=== PATIENT | male | born 1955 | race Caucasian/White ===

== ENCOUNTER 2023-09-13 10:30 | Day surgery (SDC) | payer OTHER ==
[2023-09-11 12:29] LABS: Potassium 3.9 mEq/L (3.5-5.1)
[2023-09-11 12:36] LABS: Absolute Lymphocytes (CBC) 1.8 K/uL (0.7-4.9); Lymphocytes % 21.1 % (15.3-44.8); MCV 94.4 fL (80-100); MPV 6.6 fL (7.6-11.3); Platelets 213 thou/uL (152-406); RBC Red Blood Cell Count 4.23 M/uL (4.33-5.43)
[2023-09-11 12:39] LABS: Protime INR 1.16
--- NOTE | 2023-09-12 17:13 | EKG ---
Test Date: 2023-09-11 Test Time: 13:06:01 Tool Salvage Worker: PABLO MEASUREMENT RESULTS: Intervals: Rate: 72 [place]: 168 QRSD: 108 QT: 390 QTc: 427 [place]: P: 65 [place]: 168 QRS: 2 T: 46 INTERPRETIVE STATEMENTS: Sinus rhythm with premature atrial complexes with aberrant conduction Nonspecific ST abnormality Abnormal ECG Compared to ECG 07/03/2023 09:56:14 Atrial premature complex(es) now present Aberrant conduction of supraventricular beat(s) now present ST (T wave) deviation now present Ventricular premature complex(es) no longer present Left-axis deviation no longer present Electronically Signed On 09-12-23 17:10:36 TABLE TENDER SLUDGE by Denver Menard
[2023-09-13] MEDS ORDERED: NA CHLORIDE 0.9% 500 ML ONE (11:01)
[2023-09-13] MEDS ORDERED: VERAPAMIL HCL 10 MG/4 ML VIAL IV ONE (11:58)
[2023-09-13] MEDS ORDERED: HEPA 1000U/500MLS 2,000 UNIT/1,000 ML BAG IV ONE (11:58)
[2023-09-13] MEDS ORDERED: LIDOCAINE 1% 20 ML MDV ONE (11:58)
[2023-09-13] MEDS ORDERED: MIDAZOLAM HCL 2 MG/2 ML INJ ONE (11:59)
[2023-09-13] MEDS ORDERED: FENTANYL CITR 100 MCG/2 ML ONE (11:59)
[2023-09-13] MEDS ORDERED: HEPARIN 10,000 UNIT/10 ML VIAL IV ONE (12:00)
[2023-09-13] MEDS ORDERED: HEPARIN 5000 UNIT/ML 1 ML VIAL ONE (12:00)
[2023-09-13] MEDS ORDERED: TICAGRELOR 90 MG TABLET PO ONE (12:00)
[2023-09-13] MEDS ORDERED: ASPIRIN 325 MG TAB ONE (12:01)
[2023-09-13] MEDS ORDERED: CLOPIDOGREL 75 MG TABLET ONE (12:01)
--- NOTE | 2023-09-13 14:04 | OP ---
Date of Procedure: 09/13/2023 Surgeon: KOFI PULLIAM Procedures Performed: 1.Selective coronary angiogram. 2.Left heart catheterization. Indication: Chest pain with abnormal stress test. Access: Right radial artery 6-Serbian closed with TR band. Anesthesia: Total sedation time was 30 minutes. Complications: None. Bleeding: Less than 20 mL. Description Of Procedure: After risks, benefits, alternatives were explained, patient agreed to proc edure and signed informed consent. The patient was brought into cardiac catheterization laboratory, prepped and draped in the usual sterile fashion. Then I accessed right radial artery using pediatric micropuncture kit, placed a 6-Serbian Slender sheath and took 5-Serbian [place] 4.0 catheter into the ao rtic root, engaged the left main and the right coronary artery, took standard views and the catheter was pushed over the wire into the LV, measured the LVEDP. Pullback did not record any gradient. The n I removed the catheter and the sheath and placed TR band with good hemostasis. Findings: 1.Left main; large and normal. 2.LAD, very large vessel, proximal 30%, mid 20%, normal diagonal branches. Rest of the LAD is large with luminal irregularities and gives collaterals to the left circumflex. 3.Left circumflex; it is a large and dominant artery with 100% occlusion in the mid segment. It is a ROOFING SUPERINTENDENT. It has very large collaterals filling from the septals in the LAD and supplying to all the in ferior wall. 4.RCA; small, nondominant with ROOFING SUPERINTENDENT proximally and collaterals that fills the vessel dista lly. 5.LVEDP normal at 5 mmHg. Conclusion: 1.Severe left circumflex and RCA stenosis. They are ROOFING SUPERINTENDENT with collaterals for both of them. 2.Mild coronary artery disease elsewhere. 3.Normal LVEDP. Recommendation: Medical management with nitrates. If he continues to have chest pain, then we will plan to attempt a ROOFING SUPERINTENDENT intervention on the left circumflex. SR/MODL Voice ID: [id number] Report ID: [id number]
[2023-09-13 14:34] VITALS: BP 158/79; O2SAT 98
== END 2023-09-13 14:50 | disposition home or self-care (01) ==
LOC: CCL 10:30
PROVIDERS: ATTEND Internal Medicine
DX: I25.10 Atherosclerotic heart disease of native coronary artery without angina pectoris (principal); I25.82 Chronic total occlusion of coronary artery; I73.9 Peripheral vascular disease, unspecified; I65.29 Occlusion and stenosis of unspecified carotid artery; I10 Essential (primary) hypertension; E78.5 Hyperlipidemia, unspecified; Z79.899 Other long term (current) drug therapy
CPT/HCPCS: 93005; 85025; 80048; 36415; 83721; 85610; 85730; 93458; 76937; C1893; Q9966; J1644; J2001; J2250; J3010; J7040; 99152; 99153

== ENCOUNTER 2023-10-06 08:26 | Day surgery (SDC) | payer OTHER ==
[2023-10-04 10:22] LABS: Absolute Lymphocytes (CBC) 1.7 K/uL (0.7-4.9); Hematocrit 40.2 % (39.6-49.0); Lymphocytes % 21.4 % (15.3-44.8); MCV 93.5 fL (80-100); MPV 6.5 fL (7.6-11.3); Platelets 212 thou/uL (152-406)
[2023-10-04 10:23] LABS: Protime INR 1.1
[2023-10-04 10:42] LABS: Potassium 4.5 mEq/L (3.5-5.1)
--- NOTE | 2023-10-04 10:45 | RAD REPORT ---
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 Lungs: No evidence of edema or pneumonia. Several calcified right lung nodules. Pleural: No significant pleural effusions or pneumothorax. Cardiac: The heart size is within normal limits. Mediastinum: Within normal limits. Bones: No acute fractures. Other: None IMPRESSION: No acute cardiopulmonary disease.
--- NOTE | 2023-10-05 13:25 | EKG ---
Test Date: 2023-10-04 Test Time: 11:05:46 Operations Planner: PABLO MEASUREMENT RESULTS: Intervals: Rate: 67 CA: 170 QRSD: 112 QT: 382 QTc: 403 [place]: P: 64 CA: 170 QRS: 6 T: 70 INTERPRETIVE STATEMENTS: Normal sinus rhythm Normal ECG Compared to ECG 09/11/2023 13:06:01 Atrial premature complex(es) no longer present Aberrant conduction of supraventricular beat(s) no longer present ST (T wave) deviation no longer present Electronically Signed On 10-05-23 13:22:19 NOTCHING MACHINE OPERATOR by Denver Menard
[2023-10-06] MEDS ORDERED: HEPA 1000U/500MLS 2,000 UNIT/1,000 ML BAG IV ONE (08:31)
[2023-10-06] MEDS ORDERED: NA CHLORIDE 0.9% 500 ML ONE (08:48)
[2023-10-06] MEDS ORDERED: MIDAZOLAM HCL 2 MG/2 ML INJ ONE (09:20)
[2023-10-06] MEDS ORDERED: FENTANYL CITR 100 MCG/2 ML ONE (09:20)
[2023-10-06] MEDS ORDERED: LIDOCAINE 1% 20 ML MDV ONE (10:06)
[2023-10-06 13:25] VITALS: BP 153/82; O2SAT 99
--- NOTE | 2023-10-06 14:57 | OP ---
Date of Procedure: 10/06/2023 Surgeon: KOFI PULLIAM Procedures Performed: 1.Bilateral selective carotid angiogram. 2.Peripheral angiogram with runoff. Indications: 1.Carotid stenosis. 2.PAD with symptoms. Access: Right femoral artery 6-Kyrgyz closed with StarClose. Complications: None. Bleeding: Less than 20 mL. Anesthesia: Total sedation time was 30 minutes. Used fentanyl and Versed. Description Of Procedure: After risks, benefits, and alternatives were explained, the patient agreed to procedure and signed informed consent. The patient was brought into cardiac catheterization [facility], prepped and draped in the usual sterile fashion. Then, I accessed right femoral artery using micropuncture kit, ultrasound guidance, and fluoroscopy, placed a 6-Kyrgyz [place] sheath, took 6-F rench 3DRC catheter into aortic root, and engaged right common carotid, took standard views, and the left common carotid, and took standard views, and then exchanged for a 4-Kyrgyz Omniflush catheter pl aced in distal aorta, performed distal aortogram with runoff and then removed the catheter and sheath and StarClose was used for closure with good hemostasis. Findings: 1.Carotid angiogram: a.Right common carotid is normal and the right internal carotid has significant stenosis ranging bet ween 70% to 80%, right external carotid is patent. b.Left common carotid is normal. Left external carotid is normal. Left internal carotid has proxim al 30% to 40% stenosis. 2.Peripheral angiogram: a.This aorta is widely patent. b.Right lower extremity. Right common iliac is normal. Right external iliac has about 30% stenosis . Luminal irregularities to the right common femoral artery, and widely patent right profunda with l uminal irregularities. The right SFA is totally occluded ostially and then I did not see reconstitut ion, but there are collaterals from the profunda. I could not see the vessels below the knee very we ll. 3.Left lower extremity: The left common iliac has 40% stenosis proximally. Left external iliac and left common femoral are widely patent. Left profunda is patent. Left SFA is patent with diffuse 20 % to 30% stenosis. Three-vessel runoff [id number] with diffuse moderate disease ranging between 50% to 60%. Conclusion: 1.Severe right internal carotid artery stenosis. 2.Severe right lower extremity peripheral vascular disease. Plan: 1.Right internal carotid artery endarterectomy. 2.We will plan for staged intervention in the right lower extremity, try to open the SFA. /ZAC Voice ID: [id number] Report ID: [id number]
== END 2023-10-06 13:05 | disposition home or self-care (01) ==
LOC: CCL 08:26
PROVIDERS: ATTEND Internal Medicine
DX: I70.223 Atherosclerosis of native arteries of extremities with rest pain, bilateral legs (principal); I70.92 Chronic total occlusion of artery of the extremities; I65.23 Occlusion and stenosis of bilateral carotid arteries; I25.10 Atherosclerotic heart disease of native coronary artery without angina pectoris; I10 Essential (primary) hypertension; E78.5 Hyperlipidemia, unspecified; Z79.899 Other long term (current) drug therapy
CPT/HCPCS: 93005; 85025; 80048; 36415; 83721; 85610; 85730; 71046; 75630; 36222; 76937; C1893; J2001; J2250; J3010; J7040; 99152; 99153

== ENCOUNTER 2024-10-25 12:09 | Inpatient (IN) | payer OTHER ==
--- OUTSIDE RECORDS SUMMARY | 2024-10-25 12:12 | XMS REPORT | Clinical Summary ---
Author Name Unknown Organization [facility] Address [address] [place] [address] Care Team Providers Care Health Inspector Food Name Role Phone Jojo Corral RN Unavailable [phone] Abbie Cruz PALLETISER OPERATOR Unavailable [phone] Tramaine Mahmood MD Unavailable [phone] Encounters Date Type Department Care Team Description 05/20/2024 Telephone [facility] [address]th [place] [address] Jojo Corral, RN Nurse Navigation 05/08/2024 Documentation [facility] [address], [address]th [place] [address] Jojo Corral, RN Nurse Navigation 04/29/2024 Telephone [facility] [place] [facility] [address], [address]th [place] [address] Jojo Corral, RN Nurse Navigation after 10/26/2023 Social History Tobacco Use Types Packs/Day Years Used Date Smoking Tobacco: Never Assessed Sex and Gender Information Value Date Recorded Sex Assigned at Not on file Legal Sex Male 10:35 AM CDT Gender Identity Not on file Sexual Orientation Not on file Plan of Treatment Health Maintenance Due Date Last Done Comments Pneumococcal Vaccine: 50+ Years (1 of 1 - PCV) 006 COVID-19 Vaccine (2023- season) 2024 Influenza Vaccine (#1) 2024 Insurance MEDICARE ADVANTAGE MEDICARE ADVANTAGE Care Teams Health Inspector Food Relationship Specialty Start Date End Date Abbie Cruz FNP [address] [place] [address] PCP - External Primary Care Provider Family Practice 04/29/24 Tramaine Mahmood MD [address] [place] [id number] [email or web address] PCP - External Follow Up A Pulmonary Medicine 04/29/24 Jojo Corral, RN [address] [place] [address] [email or web address] Intake Nurse Navigator Nursing 04/29/24 05/19/24
--- NOTE | 2024-10-25 15:02 | RAD REPORT ---
EXAM: Chest Single View HISTORY: COUGH COMPARISON: 05/16/2024 FINDINGS: LUNGS/PLEURA: The lungs are clear. No pleural effusions or pneumothorax. No pulmonary edema. The prev iously biopsied right lung nodule has decreased in size. MEDIASTINUM: The mediastinal silhouette is within normal limits. CARDIAC: The cardiac silhouette is within normal limits. UPPER ABDOMEN: No significant abnormality. BONES: No acute abnormality. LINES/TUBES/OTHER: Left IJ approach Port-A-Cath with tip overlying the proximal SVC. IMPRESSION: No evidence of acute cardiopulmonary disease.
[2024-10-25 15:55] LABS: Absolute Lymphocytes (CBC) 0.1 K/uL (0.7-4.9); Absolute Monocytes 0.2 K/uL (0.1-1.3); Absolute Neutrophil 1.5 K/uL (1.8-8.0); Basophils % 0.8 % (0-1.3); Eosinophils % 0.1 % (0-4.4); Hematocrit 36.5 % (39.6-49.0); Hemoglobin 12.4 g/dL (13.6-17.9); Lymphocytes % 6.6 % (15.3-44.8); MCH 30.7 pg (27.0-35.0); MCHC 33.9 g/dL (32.0-36.0); MCV 90.5 fL (80-100); MPV 6.9 fL (7.6-11.3); Monocytes % 10.2 % (3.3-12.3); Neutrophils % 82.3 % (41.7-73.7); Nucleated Red Blood Cells % 0.3 % (0-0); Platelets 139 thou/uL (152-406); RBC Red Blood Cell Count 4.03 M/uL (4.33-5.43); Red Cell Distribution Width 24.4 % (12.1-15.2)
[2024-10-25 15:56] LABS: Platelet Estimate DECR; Platelets, Giant PRESENT; White Blood Cell Scan OK (OK)
[2024-10-25] MEDS ORDERED: NA CHLORIDE 0.9% 1,000 ML ONE ×3 (15:56→21:29)
[2024-10-25 15:57] LABS: Anisocytosis 3+; Blood Morphology Comment NOTED (NOT SEEN); PT Prothrombin Time 20.2 SECONDS (10.0-13.0); Protime INR 1.82
[2024-10-25 16:12] LABS: AST/SGOT 13 U/L (15-37); Albumin/Globulin Ratio 0.6 (1.1-1.8); Alkaline Phosphatase 147 U/L (45-117); Anion Gap 12.1 mEq/L (5.0-15.0); BUN Blood Urea Nitrogen 17 mg/dL (7-18); Bicarbonate 24 mEq/L (21-32); Bilirubin Direct 0.3 mg/dL (0-0.2); Bilirubin Indirect, Calculated 0.3 mg/dL (0.2-0.8); Bilirubin Total 0.6 mg/dL (0.2-1.0); Globulin 5.2 g/dL (2.3-3.5); Glomerular Filtration Rate 98 ml/min (=/>90); Glucose Level 112 mg/dL (74-106); Lipase 15 U/L (13-75); Magnesium 1.8 mg/dL (1.6-2.4); NT PRO-BNP 379 pg/mL (<125); Potassium 4.1 mEq/L (3.5-5.1); Protein, Total 8.2 g/dL (6.4-8.2); Sodium Level 133 mEq/L (136-145); Troponin High Sensitivity 9.9 pg/mL (<58.9)
[2024-10-25 16:13] LABS: ALT/SGPT < 14 U/L (16-61)
[2024-10-25 16:18] LABS: Influenza A Ag Negative; Influenza B Ag Negative; SARS-CoV-2 Antigen Rapid Res Negative (Negative)
[2024-10-25] MEDS ORDERED: ONDANSETRON 4 MG/2 ML VIAL ONE (16:38)
[2024-10-25] MEDS ORDERED: MAGNES/ALUMIN/SIMET 30ML UCUP ONE (16:39)
[2024-10-25] MEDS ORDERED: FAMOTIDINE 20 MG/2 ML VIAL IV ONE (16:39)
[2024-10-25] MEDS ORDERED: MORPHINE 2 MG/ML SYR ONE (16:39)
[2024-10-25] MEDS ORDERED: LIDOCAINE VISCOUS 2% 10ML ORAL SOLN ONE ×2 (16:40→22:00)
--- NOTE | 2024-10-25 16:43 | EDPHYS ---
Physician Documentation [facility] Name: Ari Sutton Age: 69 yrs Sex: Male : 1955 Arrival Date: 10/25/2024 Time: 12:09 Bed 5 Private MD: ED Physician Félix Rodriguez HPI: 10/25 16:31 This 69 yrs old Male presents to ER via Wheelchair with complaints of luis Weakness, Decreased Appetite. 16:31 The patient presents to the emergency department with weakness of the entire body, luis generalized weakness. Onset: The symptoms/episode began/occurred 2 day(s) ago. Context: occurred. Historical: - Allergies: 13:19 No Known Allergies; ap3 - PMHx: 13:19 lung cancer; ap3 - Immunization history:: Client reports receiving the 2nd dose of the Covid vaccine, Flu vaccine is up to date. - Infectious Disease History:: Denies. - Social history:: Smoking status: Patient denies any tobacco usage or history of. ROS: 16:33 Constitutional: Negative for fever, chills, and weight loss, Eyes: Negative for injury, luis pain, redness, and discharge, ENT: Negative for injury, pain, and discharge, Neck: Negative for injury, pain, and swelling, Respiratory: Negative for shortness of breath, cough, wheezing, and pleuritic chest pain, Abdomen/GI: Negative for abdominal pain, nausea, vomiting, diarrhea, and constipation, Back: Negative for injury and pain, : Negative for injury, bleeding, discharge, and swelling, MS/Extremity: Negative for injury and deformity, Skin: Negative for injury, rash, and discoloration, Psych: Negative for depression, anxiety, suicide ideation, homicidal ideation, and hallucinations, Allergy/Immunology: Negative for hives, rash, and allergies, Endocrine: Negative for neck swelling, polydipsia, polyuria, polyphagia, and marked weight changes, Hematologic/Lymphatic: Negative for swollen nodes, abnormal bleeding, and unusual bruising, 16:33 ENT: Positive for difficulty swallowing, 16:33 Cardiovascular: Positive for palpitations, Exam: 16:33 Constitutional: This is a well developed, well nourished patient who is awake, alert, luis and in no acute distress. Head/Face: Normocephalic, atraumatic. Eyes: Pupils equal round and reactive to light, extra-ocular motions intact. Lids and lashes normal. Conjunctiva and sclera are non-icteric and not injected. Cornea within normal limits. Periorbital areas with no swelling, redness, or edema. Neck: Trachea midline, no thyromegaly or masses palpated, and no cervical lymphadenopathy. Supple, full range of motion without nuchal rigidity, or vertebral point tenderness. No Meningismus. Chest/axilla: Normal chest wall appearance and motion. Nontender with no deformity. No lesions are appreciated. Cardiovascular: Regular rate and rhythm with a normal S1 and S2. No gallops, murmurs, or rubs. Normal PMI, no JVD. No pulse deficits. Respiratory: Lungs have equal breath sounds bilaterally, clear to auscultation and percussion. No rales, rhonchi or wheezes noted. No increased work of breathing, no retractions or nasal flaring. Abdomen/GI: Soft, non-tender, with normal bowel sounds. No distension or tympany. No guarding or rebound. No evidence of tenderness throughout. Back: No spinal tenderness. No costovertebral tenderness. Full range of motion. Skin: Warm, dry with normal turgor. Normal color with no rashes, no lesions, and no evidence of cellulitis. MS/ Extremity: Pulses equal, no cyanosis. Neurovascular intact. Full, normal range of motion., bilateral aka Neuro: Awake and alert, GCS 15, oriented to person, place, time, and situation. Cranial nerves II-XII grossly intact. Motor strength 5/5 in all extremities. Sensory grossly intact. Cerebellar exam normal. Normal gait. Psych: Awake, alert, with orientation to person, place and time. Behavior, mood, and affect are within normal limits. 16:33 ENT: Mouth: Lips: dry, Oral mucosa: dry, Tongue: is normal, Posterior pharynx: Airway: normal, no evidence of obstruction, Tonsils: are normal in appearance, Uvula: normal, swelling, is not appreciated, erythema, that is mild, 16:42 ECG was reviewed by the Attending Physician. [facility] Vital Signs: 13:17 BP 130 / 76 LA (auto/); Pulse 100; Resp 18; Temp 97.8(TE); Pulse Ox 100% ; Weight 79.38 ap3 kg; Height 6 ft. 0 in. ; Pain 6/10; 16:06 BP 133 / 76; Pulse 98; Resp 17; Pulse Ox 98% on R/A; jl7 16:27 BP 122 / 75; Pulse 90; Resp 15; Pulse Ox 100% ; jl7 19:22 BP 123 / 71; Pulse 92; Resp 18; Temp 98.2; Pulse Ox 96% on R/A; Pain 4/10; bm8 20:56 BP 130 / 70; Pulse 78; Resp 18; Temp 98.2; Pulse Ox 97% ; Pain 4/10; bm8 13:17 Body Mass Index 23.73 (79.38 kg, 182.88 cm) ap3 13:17 Pain Scale: Adult ap3 19:22 Pain Scale: Adult bm8 20:56 Pain Scale: Adult bm8 [place] Coma Score: 19:22 Eye Response: spontaneous(4). Motor Response: obeys commands(6). Verbal Response: bm8 oriented(5). Total: 15. 20:56 Eye Response: spontaneous(4). Motor Response: obeys commands(6). Verbal Response: bm8 oriented(5). Total: 15. MDM: 12:44 Medical Screening Exam initiated luis 16:36 Data reviewed: vital signs, nurses notes, lab test result(s), EKG, radiologic studies, luis plain films. Consideration of Admission/Observation Patient was admitted/placed on observation. Escalation of care including admission/observation considered. I considered the following discharge prescriptions or medication management in the emergency department Medications were administered in the Emergency Department. See MAR. Independent interpretation of the following test(s) in the Emergency Department EKG: See my EKG interpretation above. Test considered but Not performed: CT: NO SOFT TISSUE NECK. Care significantly affected by the following chronic conditions: Cancer, SP CHEMO/ XRT. 10/25 12:47 Order name: Basic Metabolic Panel; Complete Time: 16:15 [facility] 10/25 12:47 Order name: CBC with Diff; Complete Time: 16:15 [facility] 10/25 12:47 Order name: LFT's; Complete Time: 16:15 [facility] 10/25 12:47 Order name: Magnesium; Complete Time: 16:15 [facility] 10/25 12:47 Order name: NT PRO-BNP; Complete Time: 16:15 [facility] 10/25 12:47 Order name: PT-INR; Complete Time: 16:15 [facility] 10/25 12:47 Order name: Troponin HS; Complete Time: 16:15 [facility] 10/25 12:47 Order name: Lipase; Complete Time: 16:15 [facility] 10/25 12:47 Order name: Blood Culture Adult (2) [facility] 10/25 12:47 Order name: Urinalysis W/Microscopic [facility] 10/25 15:26 Order name: Lactate w/ 2H reflex if indic.; Complete Time: 16:15 jl7 10/25 16:00 Order name: CBC Smear Scan [facility] 10/25 16:00 Order name: COVID-19 Ag + Flu A+B Ag [facility] 10/25 17:25 Order name: Urinalysis w/ reflexes [facility] 10/25 17:25 Order name: CBC with Automated Diff [facility] 10/25 17:25 Order name: CBC with Automated Diff [facility] 10/25 17:25 Order name: Comprehensive Metabolic Panel [facility] 10/25 17:25 Order name: Comprehensive Metabolic Panel [facility] 10/25 12:47 Order name: XRAY Chest (1 view); Complete Time: 16:15 [facility] 10/25 12:47 Order name: EKG; Complete Time: 12:47 [facility] 10/25 17:25 Order name: CONS Physician Consult [facility] 10/25 12:47 Order name: Cardiac monitoring; Complete Time: 15:33 [facility] 10/25 12:47 Order name: EKG - Nurse/Tech; Complete Time: 16:46 [facility] 10/25 12:47 Order name: IV Saline Lock; Complete Time: 15:47 [facility] 10/25 12:47 Order name: Labs collected and sent; Complete Time: 15:47 [facility] 10/25 12:47 Order name: O2 Per Protocol; Complete Time: 15:33 [facility] 10/25 12:47 Order name: O2 Sat Monitoring; Complete Time: 15:33 [facility] 10/25 16:30 Order name: PO challenge; Complete Time: 17:52 [facility] EC:42 Rate is 105 beats/min. Rhythm is regular. QRS Amite is Normal. NE interval is normal. luis QRS interval is normal. QT interval is normal. No Q waves. T waves are Normal. No ST changes noted. Clinical impression: Sinus tachycardia. Interpreted by me. Reviewed by me. Administered Medications: 16:03 Drug: NS 0.9% IV 500 ml 500 ml IV at 1 bolus once; to be given as a bolus over 30 jl7 minutes Volume: 500 ml; Route: IV; Rate: 1 bolus; Site: Port-a-cath; 16:29 Follow up: Response: No adverse reaction; IV Status: Completed infusion; IV Intake: jl7 500ml 16:33 Drug: NS 0.9% IV 500 ml 500 ml IV at 125 ml/hr once Volume: 500 ml; Route: IV; Rate: ko1 125 ml/hr; Site: Port-a-cath; 20:57 Follow up: Response: No adverse reaction; IV Status: Infusion continued upon admission bm8 16:47 Drug: Ondansetron IVP 4 mg IVP once; over 2 minutes Route: IVP; Site: Port-a-cath; ko1 17:05 Follow up: Response: No adverse reaction; Nausea is decreased ko1 16:47 Drug: Famotidine IVP 20 mg IVP once; dilute with 10 mL 0.9% NaCl; give over 2 minutes ko1 Route: IVP; Site: Port-a-cath; 17:05 Follow up: Response: No adverse reaction ko1 16:48 Drug: morphine IVP or IV 2 mg IVP once over 4 mins Route: IVP; Infused Over: 4 mins; ko1 Site: Port-a-[facility]; 17:05 Follow up: Response: No adverse reaction ko1 16:50 Drug: NS 0.9% IV 1000 ml IV at 1000 ml once; to be given as a bolus over 60 minutes ko1 Route: IV; Rate: 1000 ml; Site: Port-a-cath; 17:52 Follow up: Response: No adverse reaction; IV Status: Completed infusion; IV Intake: ko1 1000ml 17:10 Drug: GI Cocktail without - (Maalox PO 30 ml, Lidocaine Mucous Membrane 2 % 15 ko1 ml) PO once Route: PO; 17:40 Follow up: Response: No adverse reaction ko1 20:57 Not Given (Patient Refused): morphineor iv 2 mg IVP once over 4 mins bm8 Disposition Summary: 10/25/24 16:42 Hospitalization Ordered Notes: Hospitalization Status: Inpatient Admission luis Provider: Leelee Clement cha Condition: Serious luis Problem: new luis Symptoms: have improved luis Bed/Room Type: Standard luis Location: Telemetry/MedSurg (Inpatient)(10/25/24 21:45) hw Room Assignment: 401(10/25/24 21:45) hw Diagnosis - Dehydration luis - Dysphagia - PAINFUL/ SECONDARY XRT luis - Neutropenia, unspecified luis Forms: - Medication Reconciliation Form luis - SBAR form luis - Leadership Thank You Letter luis Signatures: Dispatcher [employer] EDMS Félix Rodriguez MD MD cha Leal, Jahala, RN RN jl7 Halima Arriaga RN RN ap3 Ignacia Foster RN RN kb3 Juanis Rachel RN RN ko1 Jennifer Kirkpatrick Brad RN bm8 Corrections: (The following items were deleted from the chart) 12:47 12:47 BASIC METABOLIC PANEL+C.LAB.BRZ ordered. EDMS EDMS 12:47 12:47 CBC+H.LAB.BRZ ordered. EDMS EDMS 12:47 12:47 HEPATIC FUNCTION+C.LAB.BRZ ordered. EDMS EDMS 12:47 12:47 MAGNESIUM+C.LAB.BRZ ordered. EDMS EDMS 12:47 12:47 PROBNP+C.LAB.BRZ ordered. EDMS EDMS 12:47 12:47 PROTIME (+INR)+COAG.LAB.BRZ ordered. EDMS EDMS 12:47 12:47 Troponin High Sensitivity+C.LAB.BRZ ordered. EDMS EDMS 12:47 12:47 LIPASE+C.LAB.BRZ ordered. EDMS EDMS 12:47 12:47 BLOOD CULTURE*+BA.LAB.BRZ ordered. EDMS EDMS 12:47 12:47 Urinalysis W/Microscopic+U.LAB.BRZ ordered. EDMS EDMS 13:20 13:19 PMHx: lunch cancer; ap3 ap3 16:00 12:47 Influenza Screen (A \T\ B)+BA.LAB.BRZ ordered. EDMS EDMS 16:00 12:47 SARS-COV-2 Antigen Rapid+I.LAB.BRZ ordered. EDMS EDMS 20:40 16:42 Telemetry/MedSurg (Inpatient) luis kb3 20:40 16:42 luis kb3 21:45 20:40 [facility] ER HOLD kb3 hw 21:45 20:40 ERHOLD- kb3 hw
--- NOTE | 2024-10-25 16:43 | ER ---
Nurse's Notes [facility] Name: Ari Sutton Age: 69 yrs Sex: Male : 1955 Arrival Date: 10/25/2024 Time: 12:09 Bed 5 Private MD: Diagnosis: Dehydration;Dysphagia-PAINFUL/ SECONDARY XRT;Neutropenia, unspecified Presentation: 10/25 13:17 Chief complaint: Patient states: he hasn't really eaten or drank much in the last two ap3 weeks due to cancer treatment. patient states his last radiation was Monday10/22/24, and last chemo treatment was 10/21/24. patient reports that he feels weak and has been sleeping a lot recently. Coronavirus screen: At this time, the client does not indicate any symptoms associated with coronavirus-19. Ebola Screen: No symptoms or risks identified at this time. Initial Sepsis Screen: Does the patient meet any 2 criteria? No. Patient's initial sepsis screen is negative. Does the patient have a suspected source of infection? No. Patient's initial sepsis screen is negative. Risk Assessment: Do you want to hurt yourself or someone else? Patient reports no desire to harm self or others. Onset of symptoms is unknown. 13:17 Method Of Arrival: Wheelchair ap3 13:17 Acuity: [place] 3 ap3 Triage Assessment: 13:20 General: Appears uncomfortable, Behavior is calm, cooperative, appropriate for age. ap3 Pain: Complains of pain in throat Pain currently is 8 out of 10 on a pain scale. EENT: Reports pain when swallowing. Neuro: Level of Consciousness is awake, alert, obeys commands, Oriented to person, place, time, situation, Appropriate for age. Cardiovascular: Patient's skin is warm and dry. Respiratory: Airway is patent Respiratory effort is even, unlabored, Respiratory pattern is regular, symmetrical. GI: Reports decreased appetite. Historical: - Allergies: 13:19 No Known Allergies; ap3 - PMHx: 13:19 lung cancer; ap3 - Immunization history:: Client reports receiving the 2nd dose of the Covid vaccine, Flu vaccine is up to date. - Infectious Disease History:: Denies. - Social history:: Smoking status: Patient denies any tobacco usage or history of. Screenin:21 [facility] ED Fall Risk Assessment (Adult) History of falling in the last 3 months, ap3 including since admission Yes- single mechanical fall (1 pt) Confusion or Disorientation No (0 pts) Intoxicated or Sedated No (0 pts) Impaired Gait Yes (1 pt) Mobility Assist Device Used Yes (1 pt) Altered Elimination No (0 pt) Score/Fall Risk Level 3 or more points = High Risk Oriented to surroundings, Maintained a safe environment, Educated pt \T\ family on fall prevention, incl call for assistance when getting out of bed, Assessed \T\ reinforced patient's understanding of fall precautions, Hourly rounding (assess needs \T\ fall precautionary measures) done, Used ambulatory aids as needed (educated on \T\ assisted with), Apply high fall risk patient identification: yellow non skid footwear/ fall signage, Remained w/in arm's length of patient and in sight while toileting, Remained with patient while ambulating, Utilized family, sitter, or virtual horticultural nursery assistant as indicated. Abuse screen: Denies threats or abuse. Nutritional screening: No deficits noted. Tuberculosis screening: No symptoms or risk factors identified. Assessment: 16:06 General: Appears in no apparent distress. ill, Behavior is calm, cooperative, jl7 appropriate for age. Pain: Denies pain. Neuro: Reports weakness in generalized. Cardiovascular: No deficits noted. Respiratory: No deficits noted. GI: Reports anorexia. : No deficits noted. No signs and/or symptoms were reported regarding the genitourinary system. EENT: No deficits noted. No signs and/or symptoms were reported regarding the EENT system. Derm: No deficits noted. No signs and/or symptoms reported regarding the dermatologic system. Musculoskeletal: Reports weakness in generalized. 19:22 General: Appears in no apparent distress. uncomfortable, Behavior is calm, cooperative, bm8 appropriate for age. Pain: Complains of pain in throat Pain does not radiate. Pain currently is 4 out of 10 on a pain scale. at worst was 10 out of 10 on a pain scale. level that patient reports is acceptable is 4 out of 10 on a pain scale. Neuro: No deficits noted. Level of Consciousness is awake, alert, obeys commands, Oriented to person, place, time, situation, Appropriate for age. Cardiovascular: No deficits noted. Denies chest pain, Capillary refill < 3 seconds in bilateral fingers Patient's skin is warm and dry. Respiratory: Airway is patent Trachea midline Respiratory effort is even, unlabored, Respiratory pattern is regular, symmetrical, Breath sounds are clear bilaterally. GI: Reports anorexia, due to radiation treatment. : No signs and/or symptoms were reported regarding the genitourinary system. EENT: No signs and/or symptoms were reported regarding the EENT system. Derm: No signs and/or symptoms reported regarding the dermatologic system. Musculoskeletal: No signs and/or symptoms reported regarding the musculoskeletal system. 20:56 Reassessment: Patient appears in no apparent distress at this time. Patient and/or bm8 family updated on plan of care and expected duration. Pain level reassessed. Patient is alert, oriented x 3, equal unlabored respirations, skin warm/dry/pink. Vital Signs: 13:17 BP 130 / 76 LA (auto/); Pulse 100; Resp 18; Temp 97.8(TE); Pulse Ox 100% ; Weight 79.38 ap3 kg; Height 6 ft. 0 in. ; Pain 6/10; 16:06 BP 133 / 76; Pulse 98; Resp 17; Pulse Ox 98% on R/A; jl7 16:27 BP 122 / 75; Pulse 90; Resp 15; Pulse Ox 100% ; jl7 19:22 BP 123 / 71; Pulse 92; Resp 18; Temp 98.2; Pulse Ox 96% on R/A; Pain 4/10; bm8 20:56 BP 130 / 70; Pulse 78; Resp 18; Temp 98.2; Pulse Ox 97% ; Pain 4/10; bm8 13:17 Body Mass Index 23.73 (79.38 kg, 182.88 cm) ap3 13:17 Pain Scale: Adult ap3 19:22 Pain Scale: Adult bm8 20:56 Pain Scale: Adult bm8 Hardin Coma Score: 19:22 Eye Response: spontaneous(4). Motor Response: obeys commands(6). Verbal Response: bm8 oriented(5). Total: 15. 20:56 Eye Response: spontaneous(4). Motor Response: obeys commands(6). Verbal Response: bm8 oriented(5). Total: 15. ED Course: 12:11 Patient arrived in ED. mr 12:44 Félix Rodriguez MD is Attending Physician. luis 13:19 Triage completed. ap3 13:21 Arm band placed on left wrist. ap3 14:41 XRAY Chest (1 view) In Process Unspecified. EDMS 15:31 Ashley Arciniega, RN is Primary Nurse. jl7 15:44 Accessed Port-a-Cath. Blood collected. using accessed w/ # 20 Kerns needle, ,sterile ss technique, per hospital protocol. Clean \T\ dry. Dressing intact. Good blood return. Flushes easily. 15:55 Placed in gown. Bed in low position. Call light in reach. Side rails up X2. Door zm closed. Noise minimized. Warm blanket given. Pillow given. Head of bed elevated. 16:06 Provided Education on: labs, meds. Pulse ox on. NIBP on. jl7 16:06 No provider procedures requiring assistance completed. jl7 16:38 Leelee Clement MD is Hospitalizing Provider. [facility] 16:48 CBC Smear Scan Sent. ko1 20:56 Patient admitted, IV remains in place. bm8 Administered Medications: 16:03 Drug: NS 0.9% IV 500 ml 500 ml IV at 1 bolus once; to be given as a bolus over 30 jl7 minutes Volume: 500 ml; Route: IV; Rate: 1 bolus; Site: Port-a-cath; 16:29 Follow up: Response: No adverse reaction; IV Status: Completed infusion; IV Intake: jl7 500ml 16:33 Drug: NS 0.9% IV 500 ml 500 ml IV at 125 ml/hr once Volume: 500 ml; Route: IV; Rate: ko1 125 ml/hr; Site: Port-a-cath; 20:57 Follow up: Response: No adverse reaction; IV Status: Infusion continued upon admission bm8 16:47 Drug: Ondansetron IVP 4 mg IVP once; over 2 minutes Route: IVP; Site: Port-a-cath; ko1 17:05 Follow up: Response: No adverse reaction; Nausea is decreased ko1 16:47 Drug: Famotidine IVP 20 mg IVP once; dilute with 10 mL 0.9% NaCl; give over 2 minutes ko1 Route: IVP; Site: Port-a-cath; 17:05 Follow up: Response: No adverse reaction ko1 16:48 Drug: morphine IVP or IV 2 mg IVP once over 4 mins Route: IVP; Infused Over: 4 mins; ko1 Site: Port-a-cath; 17:05 Follow up: Response: No adverse reaction ko1 16:50 Drug: NS 0.9% IV 1000 ml IV at 1000 ml once; to be given as a bolus over 60 minutes ko1 Route: IV; Rate: 1000 ml; Site: Port-a-cath; 17:52 Follow up: Response: No adverse reaction; IV Status: Completed infusion; IV Intake: ko1 1000ml 17:10 Drug: GI Cocktail without - (Maalox PO 30 ml, Lidocaine Mucous Membrane 2 % 15 ko1 ml) PO once Route: PO; 17:40 Follow up: Response: No adverse reaction ko1 20:57 Not Given (Patient Refused): morphineor iv 2 mg IVP once over 4 mins bm8 Medication: 16:06 VIS not applicable for this client. jl7 Intake: 16:29 IV: 500ml; Total: 500ml. jl7 17:52 IV: 1000ml; Total: 1500ml. ko1 Outcome: 16:42 Decision to Hospitalize by Provider. [facility] 20:56 Admitted to ER Hold. Please see [facility] for further documentation. bm8 20:56 Condition: stable 20:56 Instructed on follow up and referral plans. the need for admit, Demonstrated understanding of instructions, follow-up care, 22:55 Patient left the ED. vc1 Signatures: Dispatcher [employer] Félix Vargas MD MD cha Rivera, Carly, Reg Reg Kim Cagle, RN RN Ashley Chavarria RN RN jl7 Halima Arriaga RN RN [id number] Emma Calhoun RN RN vc1 Martinez, Zaina zm Oliver, Kathy, RN RN ko1 Marcus Vila, EANREST RN bm8 Corrections: (The following items were deleted from the chart) 13:20 13:19 PMHx: lunch cancer; ap3 ap3 16:00 15:53 Influenza Screen (A \T\ B)+BA.LAB.BRZ drawn and sent. EDMS 16:00 15:53 SARS-COV-2 Antigen Rapid+I.LAB.BRZ drawn and sent. [facility]
[2024-10-25] MEDS ORDERED: ACETAMINOPHEN 500 MG TAB PO PRN (17:20)
--- NOTE | 2024-10-25 17:29 | P.HP ---
Certification for Inpatient Patient will require the following post-hospital care: Home Health Services Practitioner: I am a practitioner with admitting privileges, knowledge of patient current condition, hospital course, and medical plan of care. Services: Services provided to patient in accordance with Admission requirements found in Title 42 Section 412.3 of the Code of Federal Regulations Patient History Date of Service: 10/25/24 Reason for admission: Generalized weakness History of Present Illness: 69-year-old man on chemotherapy with a past medical of lung cancer, anxiety, hypertension presenting with weakness and throat pain. 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 He has a port in his upper left chest wall. Associated symptoms include throat pain and dizziness. He has not been eating or drinking. In addition he states he is sleeping more than 20 hours a day. He denies fevers, chills, headaches. Allergies No Known Allergies Allergy (Verified 08/08/24 07:59) Home Medications: Allopurinol 300 mg PO DAILY 05/16/24 Amlodipine [Norvasc*] 10 mg PO BEDTIME 05/16/24 Apixaban [Eliquis] 2.5 mg PO DAILY 05/16/24 Aspirin 81 mg PO DAILY 05/16/24 Budesonide/Glycopyr/Formoterol [Breztri Aerosphere Inhaler] 160 mcg NEB DAILY 05/16/24 Clopidogrel Bisulfate [Plavix*] 75 mg PO DAILY 05/16/24 Isosorbide Mononitrate [Isosorbide Mononitrate ER] 60 mg PO DAILY 05/16/24 Rosuvastatin Calcium 20 mg PO DAILY 05/16/24 buPROPion HCL [Bupropion Xl] 150 mg PO DAILY 05/16/24 carvediloL [Carvedilol] 6.25 mg PO BID 05/16/24 Allopurinol 300 mg PO DAILY 07/30/24 Amlodipine Besylate 10 mg PO BEDTIME 07/30/24 Apixaban [Eliquis] 2.5 mg PO BID 07/30/24 Aspirin Chewable [Aspirin Chewable*] 81 mg PO DAILYPRN PRN 07/30/24 Budesonide/Glycopyr/Formoterol [Breztri Aerosphere Inhaler] 1 puff IH DAILY 07/30/24 Clopidogrel Bisulfate [Plavix] 75 mg PO DAILY 07/30/24 Isosorbide Mononitrate [Isosorbide Mononitrate ER] 2 tab PO DAILY 07/30/24 Multivit-Min/FA/Lycopen/Lutein [Centrum Silver Tablet] 1 tab PO DAILY 07/30/24 Rosuvastatin Calcium 20 mg PO DAILY 07/30/24 Ubidecarenone [Co Q-10] 100 mg PO DAILY 07/30/24 buPROPion HCL [Bupropion Xl] 150 mg PO DAILY 07/30/24 carvediloL [Coreg] 6.25 mg PO BID 07/30/24 lisinopriL [Zestril] 20 mg PO BID 07/30/24 Review of Systems General: Weakness, Malaise ENT: Unremarkable Respiratory: Unremarkable Cardiovascular: Unremarkable Gastrointestinal: Nausea Genitourinary: Unremarkable Musculoskeletal: Unremarkable Neurological: Unremarkable Physical Examination - Studies Laboratory Data (last 24 hrs) 10/25/24 10/25/24 10/25/24 15:32 15:32 15:32 WBC 1.80 L Hgb 12.4 L Hct 36.5 L Plt Count 139 L PT 20.2 H INR 1.82 Sodium 133 L Potassium 4.1 BUN 17 Creatinine 0.75 Glucose 112 H Magnesium 1.8 Total Bilirubin 0.6 AST 13 L ALT < 14 L Alkaline Phosphatase 147 H Lipase 15 Assessment and Plan - Plan Generalized weakness Throat pain Decreased appetite Neutropenia with elevated bands Thrombocytopenia Hyponatremia Lab work shows neutropenia with elevated bands Likely secondary to chemotherapy Consult oncologist Dr. Burroughs Continue fluids Resume home blood pressure medication Xanax as needed As needed Zofran Blood cultures and urinalysis pending Start Rocephin in the meantime DVT prophylaxis with Lovenox - Advance Directives Does patient have a Living Will: No Does patient have a Durable POA for Healthcare: No
[2024-10-25] MEDS: NA CHLORIDE 0.9% 1,000 ML IV SCH (18:00)
[2024-10-25] MEDS: carvediloL 6.25 MG TAB PO SCH (21:00)
[2024-10-25] MEDS: AMLODIPINE 10 MG TAB PO SCH (21:00)
[2024-10-25] MEDS: lisinopriL 20 MG TAB PO SCH (21:00)
[2024-10-25] MEDS ORDERED: CEFTRIAXONE 1000 MG/VIAL ONE (21:28)
[2024-10-25] MEDS ORDERED: ENOXAPARIN 40 MG/0.4 ML SQ ONE (21:29)
[2024-10-25] MEDS: ENOXAPARIN 40 MG/0.4 ML SQ SCH (21:38)
[2024-10-25] MEDS: CEFTRIAXONE 1,000 MG in NA CHLORIDE 0.9% 50 ML IVPB SCH (21:39)
[2024-10-26 07:05] LABS: AST/SGOT 12 U/L (15-37); Albumin 2.4 g/dL (3.4-5.0); Albumin/Globulin Ratio 0.6 (1.1-1.8); Alkaline Phosphatase 127 U/L (45-117); BUN Blood Urea Nitrogen 13 mg/dL (7-18); Bicarbonate 24 mEq/L (21-32); Bilirubin Total 0.5 mg/dL (0.2-1.0); Globulin 4.3 g/dL (2.3-3.5); Glomerular Filtration Rate 100 ml/min (=/>90); Glucose Level 92 mg/dL (74-106); Protein, Total 6.7 g/dL (6.4-8.2); Sodium Level 135 mEq/L (136-145)
[2024-10-26 07:09] LABS: ALT/SGPT < 14 U/L (16-61)
[2024-10-26] MEDS ORDERED: LIDOCAINE VISCOUS 2% 10ML ORAL SOLN ONE (07:16)
[2024-10-26 07:18] LABS: Specific Gravity 1.025 (1.005-1.030); Sqamous Epithelial <5 /HPF (None Seen); Urine Bacteria None Seen /HPF (<20); Urine Bilirubin NEGATIVE (Negative); Urine Blood Negative (Negative); Urine Clarity Clear (Clear); Urine Color Yellow (Yellow); Urine Culture Reflex Order NOT NEEDED; Urine Glucose NEGATIVE (Negative); Urine Ketones 1+ (Negative); Urine Micro Reflex YN NO BILL MICROSCOPIC; Urine Mucus Slight /HPF (None Seen); Urine Nitrite NEGATIVE (Negative); Urine Protein TRACE (Negative); Urine RBC None Seen /HPF (None Seen); Urine Urobilinogen Normal (Normal); Urine WBC <5 /HPF (<5); Urine pH 5.5 (5.0-7.0)
[2024-10-26] MEDS: LIDOCAINE VISCOUS 2% 10ML ORAL SOLN PO SCH (07:23)
[2024-10-26 07:51] LABS: Absolute Lymphocytes (CBC) 0.1 K/uL (0.7-4.9); Absolute Monocytes 0.2 K/uL (0.1-1.3); Absolute Neutrophil 1.2 K/uL (1.8-8.0); Eosinophils % 0.4 % (0-4.4); Hemoglobin 6.7 g/dL (13.6-17.9); Lymphocytes % 8.6 % (15.3-44.8); MCH 30.6 pg (27.0-35.0); MCHC 33.3 g/dL (32.0-36.0); MCV 91.9 fL (80-100); MPV 6.5 fL (7.6-11.3); Monocytes % 12.6 % (3.3-12.3); Neutrophils % 77.4 % (41.7-73.7); Nucleated Red Blood Cells % 0.6 % (0-0); Platelets 159 thou/uL (152-406); RBC Red Blood Cell Count 2.18 M/uL (4.33-5.43)
[2024-10-26] MEDS: ROSUVASTATIN 10 MG TAB PO SCH (08:04)
[2024-10-26] MEDS: BUPROPION HCL XL 150 MG TAB PO SCH (08:05)
[2024-10-26] MEDS: ISOSORBIDE MONO SR 60 MG TAB PO SCH (08:05)
[2024-10-26] MEDS: ASPIRIN 81 MG CHEWABLE TABLET PO SCH (08:05)
[2024-10-26] MEDS: COENZYME Q10- 100 MG CAP PO SCH (08:06)
[2024-10-26] MEDS: CLOPIDOGREL 75 MG TABLET PO SCH (08:06)
[2024-10-26] MEDS: PNEUMOCOCCAL VACCINE 0.5 ML IMVAC ONE (08:10)
[2024-10-26] MEDS: FENTANYL 25 MCG/PATCH TD SCH (09:00)
[2024-10-26] MEDS ORDERED: HOME MED 1 EA UNK (Rosuvastatin Calcium [Rosuvastatin Calcium] 20 MG Tablet) PO SCH (09:00)
[2024-10-26] MEDS ORDERED: AMINO AC 8 %/D10W/ELECTROLYTES 2,000 ML IV.SOLN IV SCH (09:00)
--- NOTE | 2024-10-26 09:59 | P.PN ---
Subjective Date of Service: 10/26/24 Chief Complaint: Generalized weakness Seen resting at bedside. Continues to endorse throat pain. Asking for IV parenteral nutrition. In addition he states his fentanyl patch needs to be replaced today at 5 PM. Otherwise he is improving with IV hydration. States he does not like to drink Ensure protein shakes because they taste bad. Review of Systems 10-point ROS is otherwise unremarkable Physical Examination - Vital Signs Temperature: 97.8 F Blood Pressure: 147/81 Pulse: 86 Respirations: 17 Pulse Ox (%): 98 - Physical Exam General: Alert, In no apparent distress HEENT: Atraumatic, Normocephalic Neck: Supple, Other (Left IJ catheter) Respiratory: Clear to auscultation bilaterally Cardiovascular: No edema, Other Capillary refill: <2 Seconds Gastrointestinal: Normal bowel sounds Musculoskeletal: No clubbing Integumentary: No rashes Neurological: Normal gait - Studies Laboratory Data (last 24 hrs) 10/25/24 10/25/24 10/25/24 15:32 15:32 15:32 WBC 1.80 L Hgb 12.4 L Hct 36.5 L Plt Count 139 L PT 20.2 H INR 1.82 Sodium 133 L Potassium 4.1 BUN 17 Creatinine 0.75 Glucose 112 H Magnesium 1.8 Total Bilirubin 0.6 AST 13 L ALT < 14 L Alkaline Phosphatase 147 H Lipase 15 Medications List Reviewed: Yes Assessment And Plan - Plan Generalized weakness Anemia Throat pain Lung cancer Decreased appetite Leukopenia Hyponatremia Chronic pain Thrombocytopenia resolved Type and screen blood, transfuse 1 unit PRBC Leukopenia likely secondary to chemotherapy Consult oncologist Dr. Burroughs Continue fluids, sodium improving Start Clinimix. Discussed with pharmacy Resume home blood pressure medication Xanax as needed As needed Zofran Blood cultures and urinalysis pending Start Rocephin in the meantime DVT prophylaxis with Lovenox
[2024-10-26] MEDS ORDERED: NA CHLORIDE 0.9% 250 ML IV SCH (10:00)
[2024-10-26] MEDS: NA CHLORIDE 0.9% 250 ML ONE (11:53)
[2024-10-26] MEDS: MAGIC MOUTHWASH 180 ML BTL PO PRN (12:09)
[2024-10-26] MEDS: AMINO ACIDS 5 %/DEXTROSE 20 % 2,000 ML, Lipids 20% 250 ML with MULTIVITAMINS INJ 10 ML IV SCH (17:31)
[2024-10-26 17:50] LABS: Hematocrit 21.6 % (39.6-49.0); Hemoglobin 7.5 g/dL (13.6-17.9)
[2024-10-26] MEDS: MORPHINE 2 MG/ML SYR IV PRN (18:13)
[2024-10-27 06:10] LABS: Albumin 2.3 g/dL (3.4-5.0); Albumin/Globulin Ratio 0.5 (1.1-1.8); Alkaline Phosphatase 119 U/L (45-117); Anion Gap 8.5 mEq/L (5.0-15.0); BUN Blood Urea Nitrogen 8 mg/dL (7-18); Bicarbonate 25 mEq/L (21-32); Bilirubin Total 0.4 mg/dL (0.2-1.0); Globulin 4.2 g/dL (2.3-3.5); Glomerular Filtration Rate 107 ml/min (=/>90); Glucose Level 141 mg/dL (74-106); Potassium 3.5 mEq/L (3.5-5.1); Prealbumin 10.1 mg/dL (20-40); Protein, Total 6.5 g/dL (6.4-8.2); Sodium Level 135 mEq/L (136-145)
[2024-10-27 06:11] LABS: ALT/SGPT < 14 U/L (16-61); AST/SGOT < 10 U/L (15-37)
[2024-10-27 08:20] LABS: Absolute Lymphocytes (CBC) 0.2 K/uL (0.7-4.9); Absolute Monocytes 0.3 K/uL (0.1-1.3); Absolute Neutrophil 1.8 K/uL (1.8-8.0); Basophils % 0.8 % (0-1.3); Eosinophils % 0.7 % (0-4.4); Hematocrit 21.9 % (39.6-49.0); Hemoglobin 7.4 g/dL (13.6-17.9); MCH 30.4 pg (27.0-35.0); MCHC 33.7 g/dL (32.0-36.0); MPV 6.6 fL (7.6-11.3); Monocytes % 11.4 % (3.3-12.3); Neutrophils % 79.1 % (41.7-73.7); Nucleated Red Blood Cells % 0.1 % (0-0); Platelets 168 thou/uL (152-406); RBC Red Blood Cell Count 2.44 M/uL (4.33-5.43); Red Cell Distribution Width 22.6 % (12.1-15.2)
[2024-10-27] MEDS: METHYLPREDNISOLONE 125 MG INJ IV ONE (08:30)
[2024-10-27] MEDS: FLUCONAZOLE 200mg IVPB 200 MG/100 ML BAG IV SCH (09:13)
[2024-10-27 09:51] LABS: Magnesium 1.4 mg/dL (1.6-2.4)
[2024-10-27] MEDS: POTASSIUM PHOS IN 0.9 % NACL 15 MMOL/250 ML BAG IV ONE (10:35)
--- NOTE | 2024-10-27 13:49 | P.PN ---
Subjective Date of Service: 10/27/24 Chief Complaint: Sore throat Continues to endorse severe throat pain. Denies fevers and chills. Tolerated Clinimix overnight. PRBC transfused overnight. Denies hematemesis or hematochezia Review of Systems General: Unremarkable Eyes: Unremarkable ENT: Throat Pain Respiratory: Unremarkable Cardiovascular: Unremarkable Gastrointestinal: Unremarkable Genitourinary: Unremarkable Musculoskeletal: Unremarkable Integumentary: Unremarkable Neurological: Unremarkable Lymphatics: Unremarkable Physical Examination - Vital Signs Temperature: 98.0 F Blood Pressure: 147/79 Pulse: 80 Respirations: 20 Pulse Ox (%): 97 - Physical Exam General: Alert, In no apparent distress HEENT: Atraumatic, Normocephalic Neck: Supple, 2+ carotid pulse no bruit Respiratory: Clear to auscultation bilaterally, Normal air movement Cardiovascular: No edema, Normal pulses Capillary refill: <2 Seconds Gastrointestinal: Normal bowel sounds Musculoskeletal: No clubbing Integumentary: No rashes, No breakdown Neurological: Normal gait, Normal speech Lymphatics: No axilla or inguinal lymphadenopathy External genitalia: No edema - Studies Medications List Reviewed: Yes Assessment And Plan - Plan Generalized weakness Anemia Throat pain Lung cancer Decreased appetite Leukopenia Hypophosphatemia Chronic pain Thrombocytopenia resolved s/p 1 unit PRBC. Hemoglobin remained stable Denies any melena, hematochezia, hematemesis Leukopenia mildly improved Follows with oncology Dr. Burroughs Replace phosphate. Electrolyte replacement protocol Continue Clinimix Resume home blood pressure medication Xanax as needed As needed Zofran Blood cultures no growth Continue Rocephin 25mcg Fentanyl patch replaced every 72 hours DVT prophylaxis with Lovenox
[2024-10-27] MEDS: ONDANSETRON 4 MG/2 ML VIAL IV PRN (14:28)
[2024-10-27] MEDS: FENTANYL 25 MCG/PATCH TD SCH (14:43)
[2024-10-27] MEDS: Magnesium Sulfate 2gm IVPB 2 G/50 ML BAG IV SCH (15:47)
[2024-10-27] MEDS: AMINO ACIDS 5 %/DEXTROSE 20 % 2,000 ML IV SCH (17:06)
[2024-10-28 06:32] LABS: Absolute Lymphocytes (CBC) 0.2 K/uL (0.7-4.9); Absolute Monocytes 0.3 K/uL (0.1-1.3); Absolute Neutrophil 1.8 K/uL (1.8-8.0); Basophils % 0.6 % (0-1.3); Eosinophils % 0.4 % (0-4.4); Hematocrit 22.2 % (39.6-49.0); Hemoglobin 7.6 g/dL (13.6-17.9); Lymphocytes % 10.4 % (15.3-44.8); MCH 30.9 pg (27.0-35.0); MCHC 34.2 g/dL (32.0-36.0); MCV 90.5 fL (80-100); MPV 6.4 fL (7.6-11.3); Monocytes % 14.4 % (3.3-12.3); Neutrophils % 74.2 % (41.7-73.7); Nucleated Red Blood Cells % 0.4 % (0-0); Platelets 184 thou/uL (152-406); RBC Red Blood Cell Count 2.45 M/uL (4.33-5.43); Red Cell Distribution Width 23.1 % (12.1-15.2)
[2024-10-28 06:49] LABS: Albumin 2.3 g/dL (3.4-5.0); Albumin/Globulin Ratio 0.5 (1.1-1.8); Alkaline Phosphatase 111 U/L (45-117); Anion Gap 9.3 mEq/L (5.0-15.0); BUN Blood Urea Nitrogen 10 mg/dL (7-18); Bicarbonate 24 mEq/L (21-32); Bilirubin Total 0.3 mg/dL (0.2-1.0); Globulin 4.2 g/dL (2.3-3.5); Glomerular Filtration Rate 106 ml/min (=/>90); Glucose Level 148 mg/dL (74-106); Magnesium 1.7 mg/dL (1.6-2.4); Potassium 3.3 mEq/L (3.5-5.1); Protein, Total 6.5 g/dL (6.4-8.2); Sodium Level 135 mEq/L (136-145)
[2024-10-28 06:52] LABS: ALT/SGPT < 14 U/L (16-61); AST/SGOT < 10 U/L (15-37)
[2024-10-28 06:54] LABS: Phosphorus 1.1 mg/dL (2.5-4.9)
[2024-10-28] MEDS: POTASSIUM PHOS IN 0.9 % NACL 15 MMOL/250 ML BAG IV ONE ×3 (08:50→14:18)
[2024-10-28] MEDS ORDERED: SODIUM CHLORIDE 0.9% 10ML INJ IV PRN (11:41)
[2024-10-28] MEDS: SODIUM PHOSPHATE 30 MM in NA CHLORIDE 0.9% 500 ML IV ONE (11:46)
--- NOTE | 2024-10-28 11:54 | P.PN ---
Date of Service: 10/28/24 Subjective: Reports some mild improvement in throat pain today. We discussed possibly placing a Dobbhoff and starting tube feed to use the GI system. He denies headaches, fevers, chills Review of Systems General: Weakness Eyes: Unremarkable ENT: Throat Pain Respiratory: Unremarkable Cardiovascular: Unremarkable Gastrointestinal: Unremarkable Genitourinary: Unremarkable Musculoskeletal: Unremarkable Integumentary: Unremarkable Neurological: Unremarkable Lymphatics: Unremarkable Physical Examination - Vital Signs Temperature: 98.0 F Blood Pressure: 147/79 Pulse: 80 Respirations: 20 Pulse Ox (%): 97 - Physical Exam General: Alert, In no apparent distress HEENT: Atraumatic, Normocephalic Neck: Supple, 2+ carotid pulse no bruit Respiratory: Clear to auscultation bilaterally, Normal air movement Cardiovascular: No edema, Normal pulses Capillary refill: <2 Seconds Gastrointestinal: Normal bowel sounds Musculoskeletal: No clubbing Integumentary: No rashes, No breakdown Neurological: Normal gait, Normal speech Lymphatics: No axilla or inguinal lymphadenopathy External genitalia: No edema - Studies Medications List Reviewed: Yes Assessment And Plan - Plan Severe throat pain /esophagitis Lung cancer Hypokalemia Leukopenia Hypophosphatemia Chronic pain Generalized weakness Anemia Thrombocytopenia resolved GI consult Add PPI and Carafate. Appreciate GI help Continue Magic mouthwash Stop Diflucan Stop Rocephin 1 more round of IV Solu-Medrol today s/p 1 unit PRBC. Hemoglobin remained stable Leukopenia mildly improved Follows with oncology Dr. Burroughs Replace phosphate. Electrolyte replacement protocol in place Resume home blood pressure medication Xanax as needed As needed Zofran Blood cultures no growth 25mcg Fentanyl patch replaced every 72 hours DVT prophylaxis with SCDs
--- NOTE | 2024-10-28 12:06 | EKG ---
Test Date: 2024-10-25 Test Time: 16:38:56 Household Chores: AMARILIS MEASUREMENT RESULTS: Intervals: Rate: 105 IA: 156 QRSD: 102 QT: 478 QTc: 631 [place]: P: 54 IA: 156 QRS: -17 T: 264 INTERPRETIVE STATEMENTS: Sinus tachycardia with occasional premature ventricular complexes Otherwise normal ECG Compared to ECG 10/04/2023 11:05:46 Ventricular premature complex(es) now present Sinus rhythm no longer present Electronically Signed On 10-28-24 12:04:45 [employer] by Binh Escamilla
[2024-10-28] MEDS: Ringers Lactate 1,000 ML IV SCH (12:11)
[2024-10-28] MEDS: SUCRALFATE 1GM/10ML UCUP FT SCH (12:11)
--- NOTE | 2024-10-28 17:10 | RAD REPORT ---
Modified barium swallow exam with speech pathology service HISTORY: dysphagia Fluoroscopy Time: 2:28 IMPRESSION: Please see the speech pathology service report for details. Barium contrast of multiple consistencies was provided the patient orally by the speech pathology dep artment. Fluoroscopic observation was performed during swallowing. The radiologist was not present for the examination. Provided images demonstrate no evidence for yogesh subglottic tracheal aspiration .
[2024-10-28] MEDS: AMINO ACIDS 5 %/DEXTROSE 20 % 2,000 ML, Lipids 20% 250 ML with MULTIVITAMINS INJ 10 ML IV SCH (17:51)
[2024-10-28] MEDS: PANTOPRAZOLE 40 MG INJ IVP SCH (21:16)
[2024-10-29 07:07] LABS: AST/SGOT 14 U/L (15-37); Albumin 2.1 g/dL (3.4-5.0); Albumin/Globulin Ratio 0.5 (1.1-1.8); Alkaline Phosphatase 114 U/L (45-117); Anion Gap 9.2 mEq/L (5.0-15.0); BUN Blood Urea Nitrogen 10 mg/dL (7-18); Bicarbonate 24 mEq/L (21-32); Bilirubin Total 0.2 mg/dL (0.2-1.0); Glomerular Filtration Rate 103 ml/min (=/>90); Glucose Level 126 mg/dL (74-106); Magnesium 1.4 mg/dL (1.6-2.4); Potassium 3.2 mEq/L (3.5-5.1); Protein, Total 6.1 g/dL (6.4-8.2); Sodium Level 134 mEq/L (136-145)
[2024-10-29 07:09] LABS: ALT/SGPT < 14 U/L (16-61)
[2024-10-29 07:10] LABS: Phosphorus 1.2 mg/dL (2.5-4.9)
[2024-10-29] MEDS: Magnesium Sulfate 2gm IVPB 2 G/50 ML BAG IV SCH (08:00)
[2024-10-29] MEDS: POTASSIUM PHOS IN 0.9 % NACL 15 MMOL/250 ML BAG IV SCH (08:34)
[2024-10-29] MEDS: Magnesium Sulfate 2gm IVPB 2 G/50 ML BAG IV ONE (12:56)
--- NOTE | 2024-10-29 14:55 | P.PN ---
Date of Service: 10/29/24 Subjective: He is now able to eat and drink something. He states he had more coffee today. He is eating his grits at bedside. Review of Systems General: Weakness Eyes: Unremarkable ENT: Throat Pain Respiratory: Unremarkable Cardiovascular: Unremarkable Gastrointestinal: Unremarkable Genitourinary: Unremarkable Musculoskeletal: Unremarkable Integumentary: Unremarkable Neurological: Unremarkable Lymphatics: Unremarkable Physical Examination - Vital Signs Temperature: 98.0 F Blood Pressure: 147/79 Pulse: 80 Respirations: 20 Pulse Ox (%): 97 - Physical Exam General: Alert, In no apparent distress HEENT: Atraumatic, Normocephalic Neck: Supple, 2+ carotid pulse no bruit Respiratory: Clear to auscultation bilaterally, Normal air movement Cardiovascular: No edema, Normal pulses Capillary refill: <2 Seconds Gastrointestinal: Normal bowel sounds Musculoskeletal: No clubbing Integumentary: No rashes, No breakdown Neurological: Normal gait, Normal speech Lymphatics: No axilla or inguinal lymphadenopathy External genitalia: No edema - Studies Medications List Reviewed: Yes Assessment And Plan Severe throat pain /esophagitis Lung cancer Hypokalemia Leukopenia Hypophosphatemia Chronic pain Generalized weakness Anemia Thrombocytopenia resolved Improving Continue PPI and Carafate Continue Magic mouthwash 1 more round of IV Solu-Medrol today s/p 1 unit PRBC. Hemoglobin remained stable Follows with oncology Dr. Burroughs Replace phosphate. Electrolyte replacement protocol in place Resume home blood pressure medication Xanax as needed As needed Zofran Blood cultures no growth 25mcg Fentanyl patch replaced every 72 hours DVT prophylaxis with SCDs
[2024-10-29] MEDS ORDERED: LABETALOL 20 MG/4ML SYRINGE IV PRN (18:50)
[2024-10-30 06:51] LABS: Albumin 2.2 g/dL (3.4-5.0); Albumin/Globulin Ratio 0.5 (1.1-1.8); Alkaline Phosphatase 116 U/L (45-117); Anion Gap 7.2 mEq/L (5.0-15.0); BUN Blood Urea Nitrogen 8 mg/dL (7-18); Bicarbonate 28 mEq/L (21-32); Bilirubin Total 0.3 mg/dL (0.2-1.0); Globulin 4.1 g/dL (2.3-3.5); Glomerular Filtration Rate 104 ml/min (=/>90); Glucose Level 125 mg/dL (74-106); Magnesium 1.4 mg/dL (1.6-2.4); Potassium 3.2 mEq/L (3.5-5.1); Protein, Total 6.3 g/dL (6.4-8.2); Sodium Level 134 mEq/L (136-145)
[2024-10-30 06:52] LABS: ALT/SGPT < 14 U/L (16-61); AST/SGOT < 10 U/L (15-37)
[2024-10-30 06:53] LABS: Phosphorus 1.5 mg/dL (2.5-4.9)
[2024-10-30] MEDS: KCL 20 MEQ/100 mL IVPB 20 MEQ/100 ML BAG IV SCH (07:49)
[2024-10-30] MEDS: Magnesium Sulfate 2gm IVPB 2 G/50 ML BAG IV ONE (07:49)
[2024-10-30] MEDS: POTASSIUM PHOS IN 0.9 % NACL 15 MMOL/250 ML BAG IV SCH (09:51)
[2024-10-30] MEDS ORDERED: POTASSIUM PHOS IN 0.9 % NACL 15 MMOL/250 ML BAG IV SCH (12:00)
--- NOTE | 2024-10-30 15:16 | P.PN ---
Date of Service: 10/30/24 Subjective: He is starting to eat and drink more and more. Vitals remained stable overnight. He says he feels better today. He has a smile on his face. He has no problems voiding. Review of Systems General: Weakness Eyes: Unremarkable ENT: Throat Pain Respiratory: Unremarkable Cardiovascular: Unremarkable Gastrointestinal: Unremarkable Genitourinary: Unremarkable Musculoskeletal: Unremarkable Integumentary: Unremarkable Neurological: Unremarkable Lymphatics: Unremarkable Physical Examination - Vital Signs Temperature: 98.0 F Blood Pressure: 147/79 Pulse: 80 Respirations: 20 Pulse Ox (%): 97 - Physical Exam General: Alert, In no apparent distress HEENT: Atraumatic, Normocephalic Neck: Supple, 2+ carotid pulse no bruit Respiratory: Clear to auscultation bilaterally, Normal air movement Cardiovascular: No edema, Normal pulses Capillary refill: <2 Seconds Gastrointestinal: Normal bowel sounds Musculoskeletal: No clubbing Integumentary: No rashes, No breakdown Neurological: Normal gait, Normal speech Lymphatics: No axilla or inguinal lymphadenopathy External genitalia: No edema - Studies Medications List Reviewed: Yes Assessment And Plan Severe throat pain /esophagitis Lung cancer Hypokalemia Leukopenia Hypophosphatemia Chronic pain Generalized weakness Anemia Thrombocytopenia resolved Hyponatremia Improving Appreciate GI help Continue PPI and Carafate Continue Magic mouthwash Completed 2 days of Solu-Medrol s/p 1 unit PRBC. Hemoglobin remained stable Follows with oncology Dr. Burroughs Replace phosphate. Electrolyte replacement protocol in place Resume home blood pressure medication Xanax as needed As needed Zofran Blood cultures no growth 25mcg Fentanyl patch replaced every 72 hours DVT prophylaxis with SCDs
[2024-10-30] MEDS: ALPRAZOLAM 0.25 MG TABLET PO PRN (20:24)
[2024-10-31 06:38] LABS: Albumin 2.2 g/dL (3.4-5.0); Albumin/Globulin Ratio 0.5 (1.1-1.8); Alkaline Phosphatase 111 U/L (45-117); Anion Gap 7.3 mEq/L (5.0-15.0); BUN Blood Urea Nitrogen 8 mg/dL (7-18); Bicarbonate 28 mEq/L (21-32); Bilirubin Total 0.3 mg/dL (0.2-1.0); Globulin 4.2 g/dL (2.3-3.5); Glomerular Filtration Rate 103 ml/min (=/>90); Glucose Level 118 mg/dL (74-106); Magnesium 1.5 mg/dL (1.6-2.4); Phosphorus 1.8 mg/dL (2.5-4.9); Potassium 3.3 mEq/L (3.5-5.1); Protein, Total 6.4 g/dL (6.4-8.2); Sodium Level 134 mEq/L (136-145)
[2024-10-31 06:44] LABS: ALT/SGPT < 14 U/L (16-61); AST/SGOT < 10 U/L (15-37)
[2024-10-31] MEDS: Magnesium Sulfate 2gm IVPB 2 G/50 ML BAG IV ONE (08:06)
[2024-10-31] MEDS: POTASSIUM PHOS IN 0.9 % NACL 15 MMOL/250 ML BAG IV ONE (11:15)
--- NOTE | 2024-10-31 12:26 | P.PN ---
Date of Service: 10/31/24 Subjective: Much improved today. He is tolerating more thickened foods. States he is craving fish. elevated blood pressure this morning. Voiding and moving his bowels appropriately Review of Systems General: Weakness Eyes: Unremarkable ENT: Throat Pain Respiratory: Unremarkable Cardiovascular: Unremarkable Gastrointestinal: Unremarkable Genitourinary: Unremarkable Musculoskeletal: Unremarkable Integumentary: Unremarkable Neurological: Unremarkable Lymphatics: Unremarkable Physical Examination - Vital Signs Temperature: 98.0 F Blood Pressure: 147/79 Pulse: 80 Respirations: 20 Pulse Ox (%): 97 - Physical Exam General: Alert, In no apparent distress HEENT: Atraumatic, Normocephalic Neck: Supple, 2+ carotid pulse no bruit Respiratory: Clear to auscultation bilaterally, Normal air movement Cardiovascular: No edema, Normal pulses Capillary refill: <2 Seconds Gastrointestinal: Normal bowel sounds Musculoskeletal: No clubbing Integumentary: No rashes, No breakdown Neurological: Normal gait, Normal speech Lymphatics: No axilla or inguinal lymphadenopathy External genitalia: No edema - Studies Medications List Reviewed: Yes Assessment And Plan Severe throat pain /esophagitis Lung cancer Hypokalemia Leukopenia Hypophosphatemia Chronic pain Generalized weakness Anemia Thrombocytopenia resolved Hyponatremia Improving Appreciate GI help Continue PPI and Carafate Continue Magic mouthwash Completed 2 days of Solu-Medrol s/p 1 unit PRBC. Hemoglobin remained stable Follows with oncology Dr. Burroughs Replace phosphate. Electrolyte replacement protocol in place Resume home blood pressure medication Xanax as needed As needed Zofran Blood cultures no growth 25mcg Fentanyl patch replaced every 72 hours Add Ensure DVT prophylaxis with SCDs
[2024-10-31] MEDS: ENSURE ENLIVE 237 ML CAN PO SCH (14:45)
[2024-11-01 05:59] LABS: Anion Gap 5.3 mEq/L (5.0-15.0); Magnesium 1.6 mg/dL (1.6-2.4); Phosphorus 2.3 mg/dL (2.5-4.9); Potassium 3.3 mEq/L (3.5-5.1)
[2024-11-01] MEDS: POTASSIUM CL SA 10 MEQ TAB PO ONE (07:36)
[2024-11-01] MEDS: MAGNESIUM SULFATE 1 gm IVPB 1 GM/100 ML BAG IV ONE ×2 (07:38→07:52)
[2024-11-01] MEDS: POTASSIUM PHOS IN 0.9 % NACL 15 MMOL/250 ML BAG IV ONE (10:10)
[2024-11-01 10:38] LABS: Absolute Lymphocytes (CBC) 0.2 K/uL (0.7-4.9); Absolute Monocytes 0.6 K/uL (0.1-1.3); Absolute Neutrophil 2.8 K/uL (1.8-8.0); Basophils % 0.9 % (0-1.3); Eosinophils % 0.6 % (0-4.4); Hematocrit 24.7 % (39.6-49.0); Hemoglobin 8.4 g/dL (13.6-17.9); Lymphocytes % 6.5 % (15.3-44.8); MCHC 33.9 g/dL (32.0-36.0); MCV 91.3 fL (80-100); MPV 6.6 fL (7.6-11.3); Monocytes % 15.9 % (3.3-12.3); Neutrophils % 76.1 % (41.7-73.7); Nucleated Red Blood Cells % 0.4 % (0-0); Platelets 173 thou/uL (152-406)
[2024-11-01 18:32] VITALS: BMI 23.7
[2024-11-02 05:52] LABS: Anion Gap 7.7 mEq/L (5.0-15.0); Magnesium 1.8 mg/dL (1.6-2.4); Phosphorus 2.4 mg/dL (2.5-4.9); Potassium 3.7 mEq/L (3.5-5.1)
[2024-11-02] MEDS: MAGNESIUM SULFATE 1 gm IVPB 1 GM/100 ML BAG IV ONE (07:17)
[2024-11-02] MEDS ORDERED: POTASSIUM PHOS IN 0.9 % NACL 15 MMOL/250 ML BAG IV ONE (09:00)
[2024-11-02] MEDS: POTASSIUM PHOS 30 MM in NA CHLORIDE 0.9% 500 ML IV ONE (09:17)
--- NOTE | 2024-11-02 12:01 | P.PN ---
Subjective Date of Service: 11/02/24 Chief Complaint: Sore throat Subjective: No chest pain or shortness of breath. No nausea or vomiting. No abdominal pain. No obvious bleeding. Looks comfortable in the bed. c/O throat pain from radiation, difficulty with eating, poor oral intake. Objective: General appearance: Alert and comfortable CVS: Normal S1 and S2 Lungs: Clear to auscultation bilaterally Abdomen: Soft, bowel sounds present, no tenderness Extremities: No pedal edema Physical Examination - Vital Signs Temperature: 98.2 F Blood Pressure: 129/69 Pulse: 84 Respirations: 17 Pulse Ox (%): 97 - Studies Medications List Reviewed: Yes Assessment And Plan - Plan 1. Severe throat pain /esophagitis: -Appreciate GI help, discussed by previous attending -Continue PPI and Carafate 2. Lung cancer: will d/w oncology 3. Hypokalemia, Hypophosphatemia: replaced 4. Leukopenia : from chemo, monitor 5. Chronic pain: PRN meds 6. Generalized weakness 6. Anemia: from chemo, monitor -s/p 1 unit PRBC. Hemoglobin remained stable 7.Thrombocytopenia, resolved 8. Hyponatremia: stable, monitopr Plan Discussed with the patient, monitor clinical status closely.
[2024-11-03 04:56] LABS: Absolute Lymphocytes (CBC) 0.2 K/uL (0.7-4.9); Absolute Monocytes 0.6 K/uL (0.1-1.3); Absolute Neutrophil 1.9 K/uL (1.8-8.0); Basophils % 0.8 % (0-1.3); Hematocrit 20.5 % (39.6-49.0); Hemoglobin 7.1 g/dL (13.6-17.9); Lymphocytes % 8.9 % (15.3-44.8); MCH 31.1 pg (27.0-35.0); MCHC 34.9 g/dL (32.0-36.0); MCV 89.1 fL (80-100); MPV 6.9 fL (7.6-11.3); Monocytes % 20.3 % (3.3-12.3); Platelets 140 thou/uL (152-406); Red Cell Distribution Width 23.2 % (12.1-15.2)
[2024-11-03 05:07] LABS: Anion Gap 8.1 mEq/L (5.0-15.0); Magnesium 1.7 mg/dL (1.6-2.4); Phosphorus 2.3 mg/dL (2.5-4.9); Potassium 4.1 mEq/L (3.5-5.1)
[2024-11-03 05:16] LABS: Band Neutrophils 27 % (0-1); Differential Total Cells Count 100; Eosinophils 1 % (0-3); Lymphocytes 11 % (15-42); Monocytes 9 % (0-10); Reactive Lymphocytes 1 %; Segmented Neutrophils 51 % (40-80)
[2024-11-03 05:17] LABS: Anisocytosis 1+; Blood Morphology Comment NOTED (NOT SEEN); Platelet Estimate ADEQ; Polychromasia 1+
[2024-11-03] MEDS: MAGNESIUM SULFATE 1 gm IVPB 1 GM/100 ML BAG IV ONE (05:45)
[2024-11-03] MEDS ORDERED: MORPHINE 4 MG/ML SYR IV PRN (08:31)
[2024-11-03] MEDS: SODIUM PHOSPHATE 30 MM in NA CHLORIDE 0.9% 500 ML IV ONE (08:39)
[2024-11-03] MEDS: Magnesium Sulfate 2gm IVPB 2 G/50 ML BAG IV ONE (08:39)
[2024-11-03] MEDS ORDERED: POTASSIUM PHOS IN 0.9 % NACL 15 MMOL/250 ML BAG IV ONE (09:00)
--- NOTE | 2024-11-03 14:19 | P.PN ---
Subjective Date of Service: 11/03/24 Chief Complaint: Sore throat Subjective: No chest pain or shortness of breath. No nausea or vomiting. No abdominal pain. No obvious bleeding. Looks comfortable in the bed. c/O throat pain from radiation, difficulty with eating, oral intake little better today. Objective: General appearance: Alert and comfortable CVS: Normal S1 and S2 Lungs: Clear to auscultation bilaterally Abdomen: Soft, bowel sounds present, no tenderness Extremities: No pedal edema Throat: No obvious erythema Physical Examination - Vital Signs Temperature: 98.2 F Blood Pressure: 115/61 Pulse: 74 Respirations: 17 Pulse Ox (%): 97 - Studies Medications List Reviewed: Yes Assessment And Plan - Plan 1. Severe throat pain /esophagitis: -Appreciate GI help, discussed by previous attending -Continue PPI and Carafate -oncology consult not available -oral intake little better today 2. Lung cancer: oncology not available 3. Hypokalemia, Hypophosphatemia: replacing 4. Leukopenia : from chemo, monitor 5. Chronic pain: PRN meds 6. Generalized weakness 6. Anemia: from chemo, monitor -s/p 1 unit PRBC. Hemoglobin slwoly dropping again, monitor and Tx PRN 7.Thrombocytopenia, better but some drop again today, monitor 8. Hyponatremia: stable, monitor Plan Discussed with the patient, monitor clinical status closely. d/w RN at bedside. ?DC home tomorrow
[2024-11-03 21:48] VITALS: O2SAT 98
[2024-11-04 06:21] LABS: Absolute Lymphocytes (CBC) 0.2 K/uL (0.7-4.9); Absolute Monocytes 0.6 K/uL (0.1-1.3); Absolute Neutrophil 2.1 K/uL (1.8-8.0); Basophils % 1.2 % (0-1.3); Hematocrit 21.6 % (39.6-49.0); Hemoglobin 7.3 g/dL (13.6-17.9); Lymphocytes % 7.1 % (15.3-44.8); MCH 30.6 pg (27.0-35.0); MCV 90.1 fL (80-100); MPV 6.6 fL (7.6-11.3); Monocytes % 21.5 % (3.3-12.3); Neutrophils % 69.2 % (41.7-73.7); Nucleated Red Blood Cells % 0.2 % (0-0); Platelets 161 thou/uL (152-406); Red Cell Distribution Width 22.8 % (12.1-15.2)
[2024-11-04 06:29] LABS: Anion Gap 7.7 mEq/L (5.0-15.0); Phosphorus 2.4 mg/dL (2.5-4.9); Potassium 3.7 mEq/L (3.5-5.1)
[2024-11-04] MEDS: POTASSIUM PHOS 30 MM in NA CHLORIDE 0.9% 500 ML IV SCH (08:50)
[2024-11-04] MEDS ORDERED: POTASSIUM PHOS IN 0.9 % NACL 15 MMOL/250 ML BAG IV ONE (09:00)
[2024-11-04 12:11] VITALS: BP 133/75; TEMP 98
--- NOTE | 2024-11-04 13:28 | P.DS ---
Admission Date: 10/25/24 Discharge Date: 11/04/24 Disposition: DC HOME/HOME HEALTH CARE Discharge Condition: FAIR Reason for Admission: Sore throat Hospital Course: 1. Severe throat pain /esophagitis: -Appreciate GI help -Continue PPI and Carafate -oncology consult not available -oral intake little better today -DC home, f/u with PCP and oncology 2. Lung cancer: oncology not available in the hospital, follow-up with oncology in the next few days and continue treatment 3. Hypokalemia, Hypophosphatemia: replacing 4. Leukopenia : Probably related to lung cancer treatment, follow-up with oncology. 5. Chronic pain: PRN meds 6. Generalized weakness 6. Anemia: from chemo, monitor -s/p 1 unit PRBC. Hemoglobin stable, follow-up with oncology. 7.Thrombocytopenia, better , probable related to lung cancer treatment, follow- up with oncology. 8. Hyponatremia: stable 69-year-old patient admitted with throat pain and esophagitis, probable related underlying cancer treatment, GI recommended PPI and Carafate, his symptoms slowly improving, his oral intake is not great but getting better than admission, when I see the patient today he is doing reasonably well, he seems to be eating okay, he would like to go home, otherwise no other acute issues going on so I am planning to discharge him to go home, follow-up with PCP and oncology in the next few days with repeat labs. He had multiple electrolyte abnormalities, they were all replaced, they are improving. He is on aspirin, Plavix and Eliquis, he needs to discuss with PCP about need for all these 3 medications. Subjective: No chest pain or shortness of breath. No nausea or vomiting. No abdominal pain. No obvious bleeding. Looks comfortable in the bed. Oral intake improving Objective: General appearance: Alert and comfortable CVS: Normal S1 and S2 Lungs: Clear to auscultation bilaterally Abdomen: Soft, bowel sounds present, no tenderness Extremities: No lower extremity edema Vital Signs/Physical Exam: Temp Pulse Resp BP Pulse Ox 98 F 86 16 133/75 96 11/04/24 12:00 11/04/24 12:00 11/04/24 12:00 11/04/24 12:00 11/04/24 12:00 Laboratory Data at Discharge: WBC 3.00 thou/uL (4.3-10.9) L 11/04/24 05:47 Hgb 7.3 g/dL (13.6-17.9) L 11/04/24 05:47 Hct 21.6 % (39.6-49.0) L 11/04/24 05:47 Plt Count 161 thou/uL (152-406) 11/04/24 05:47 PT 20.2 SECONDS (10.0-13.0) H 10/25/24 15:32 INR 1.82 10/25/24 15:32 Sodium 134 mEq/L (136-145) L 11/04/24 05:47 Potassium 3.7 mEq/L (3.5-5.1) 11/04/24 05:47 BUN 8 mg/dL (7-18) 11/04/24 05:47 Creatinine 0.79 mg/dL (0.70-1.30) 11/04/24 05:47 Glucose 104 mg/dL (74-106) 11/04/24 05:47 Phosphorus 2.4 mg/dL (2.5-4.9) L 11/04/24 05:47 Magnesium 2.0 mg/dL (1.6-2.4) 11/04/24 05:47 Total Bilirubin 0.3 mg/dL (0.2-1.0) 10/31/24 06:00 AST < 10 U/L (15-37) L 10/31/24 06:00 ALT < 14 U/L (16-61) L 10/31/24 06:00 Alkaline Phosphatase 111 U/L (45-117) 10/31/24 06:00 Triglycerides 159 mg/dL (<150) H 10/27/24 05:33 Lipase 15 U/L (13-75) 10/25/24 15:32 Home Medications: Allopurinol 300 mg PO DAILY 05/16/24 Apixaban [Eliquis] 2.5 mg PO DAILY 05/16/24 Aspirin 81 mg PO DAILY 05/16/24 Budesonide/Glycopyr/Formoterol [Breztri Aerosphere Inhaler] 160 mcg NEB DAILY 05/16/24 Clopidogrel Bisulfate [Plavix*] 75 mg PO DAILY 05/16/24 Isosorbide Mononitrate [Isosorbide Mononitrate ER] 60 mg PO DAILY 05/16/24 Amlodipine Besylate 10 mg PO BEDTIME 07/30/24 Multivit-Min/FA/Lycopen/Lutein [Centrum Silver Tablet] 1 tab PO DAILY 07/30/24 Rosuvastatin Calcium 20 mg PO DAILY 07/30/24 Ubidecarenone [Co Q-10] 100 mg PO DAILY 07/30/24 buPROPion HCL [Bupropion Xl] 150 mg PO DAILY 07/30/24 carvediloL [Coreg*] 6.25 mg PO BID 07/30/24 lisinopriL [Zestril] 20 mg PO BID 07/30/24 Pantoprazole [Protonix Tab] 40 mg PO DAILY 30 Days tab 11/04/24 Sucralfate [Carafate*] 1 gm PO ACHS #40 tab 11/04/24 New Medications: Sucralfate [Carafate*] 1 gm PO ACHS #40 tab Pantoprazole [Protonix Tab] 40 mg PO DAILY 30 Days tab Diet: Regular Activity: Ad mansi Followup: Abbie Cruz NP [Primary Care Provider] - 2-3 Days (f/u with PCP in 2-3 days with CBC, CMP, mg and phos. f/u with oncology as soon as possible ) Time spent managing pt's care (in minutes): 40
[2024-11-04] MEDS: HEPARIN 500 UNIT/5 ML SYR IV ONE (14:22)
== END 2024-11-04 14:44 | disposition home or self-care (01) | DRG 391 ==
LOC: ER 12:09 → ERHOLD 17:17 → 4TH 22:05
PROVIDERS: ADMIT Family Medicine; ATTEND Hospitalist
PROC: 30233N1 Transfusion of Nonautologous Red Blood Cells into Peripheral Vein, Percutaneous Approach (ICD-10-PCS; principal; 2024-10-26)
DX: K20.90 Esophagitis, unspecified without bleeding (principal); D61.810 Antineoplastic chemotherapy induced pancytopenia; C34.90 Malignant neoplasm of unspecified part of unspecified bronchus or lung; E87.1 Hypo-osmolality and hyponatremia; E87.6 Hypokalemia; E83.39 Other disorders of phosphorus metabolism; E86.0 Dehydration; G89.29 Other chronic pain; T45.1X5A Adverse effect of antineoplastic and immunosuppressive drugs, initial encounter; R07.0 Pain in throat; Z79.82 Long term (current) use of aspirin; Z11.52 Encounter for screening for COVID-19; Z79.01 Long term (current) use of anticoagulants; Z92.21 Personal history of antineoplastic chemotherapy; Z79.02 Long term (current) use of antithrombotics/antiplatelets; Z79.899 Other long term (current) drug therapy
CPT/HCPCS: 36415; 36430; 71045; 74230; 80048; 80053; 80076; 81001; 83605; 83690; 83735; 83880; 84100; 84134; 84478; 84484; 85014; 85018; 85025; 85610; 86850; 86900; 86901; 86920; 87040; 87428; 92526; 92610; 92611; 93005; 96361; 96374; 96375; 97161; 99285; J0696; J1450; J1642; J1650; J2270; J2405; J2470; J2919; J3475; J3480; J7030; J7040; J7050; J7120; P9016